=== PATIENT | male | born 1965 | race Caucasian/White ===

== ENCOUNTER 2021-04-21 09:52 | Emergency (ER) | payer BC, SELFPAY ==
--- NOTE | 2021-04-21 09:54 | ED.URI ---
HPI - URI/Sore Throat General Chief Complaint: Upper Respiratory Infection Stated Complaint: severe sinus infection Time Seen by Provider: 04/21/21 10:17 Source: patient and RN notes reviewed Mode of arrival: ambulatory Limitations: no limitations History of Present Illness HPI Narrative: 48-year-old male presents concern for 2-week history of sinus congestion, pressure, drainage. Reports painful sinuses, headache, clogged ears, general malaise. Reports taking [id number] medications with no relief. He denies cough, shortness of breath, sore throat, body aches, chills, sweats. Denies known sick contacts. MD elicited complaint: nasal congestion Related Data Allergies Allergy/AdvReac Type Severity Reaction Status Date / Time No Known Allergies Allergy Unverified 03/10/17 16:28 Review of Systems Review of Systems: CONSTITUTIONAL: Denies malaise, chills, sweats, or fever. EYES: Denies visual changes, redness, or discharge. ENT: Reports rhinorrhea, congestion, sinus pain, ear fullness. Denies otalgia and sore throat. CARDIOVASCULAR: Denies chest pain, palpitations, or edema. RESPIRATORY: Denies cough or dyspnea. GASTROINTESTINAL: Denies abdominal pain, nausea, vomiting, diarrhea SKIN: Denies rash or itching. MUSCULOSKELETAL: Denies myalgia. NEUROLOGIC: Denies headache. All systems reviewed & are unremarkable except as noted in HPI and below PMFSH Comments At time of signature, agree with nursing past medical, surgical, social and family history. There is no relevant family history pertinent to the presenting complaint Exam Narrative: GENERAL: Well-appearing, well-nourished, and in no acute distress. HEAD: Normocephalic EYES: PERRLA, conjunctivae clear ENT: Nares clear, turbinates edematous and erythematous, purulent discharge. Mucous membranes moist. TM not visible due to excess cerumen bilaterally; no tragal tenderness. Oropharynx not erythematous without lesions. Tonsils not enlarged and without exudate, no drooling, no hoarseness, no trismus, uvula midline. NECK: Supple. No lymphadenopathy CHEST: Clear to auscultation, breath sounds equal. No wheezing, rhonchi, rales, or stridor. No respiratory distress, speaks in full sentences. HEART: Regular rate and rhythm. No murmur heard. SKIN: Warm, dry, no rash. NEURO: Alert and oriented x3. PSYCH: Normal mood and affect Course Course Emergency Course: Patient is aware of diagnosis, understands and agrees to treatment plan. Anticipatory guidance given. Patient agrees to follow-up as directed and is aware of reasons to seek care at the emergency department. Portions of this record may have been created with voice recognition software Vital Signs Vital signs: Reviewed. MDM - URI/Sore Throat MDM Narrative Medical decision making narrative: Differential diagnosis considered: Baron virus, strep pharyngitis, allergic rhinitis, upper respiratory tract infection, sinusitis, rhinosinusitis, nasopharyngitis. viral pharyngitis, otitis media, otitis externa, pneumonia, bronchitis, viral cough syndrome, viral syndrome, and influenza. Exam findings show no acute concerns or changes; patient is non-toxic appearing and is in no distress. Patient is appropriate for outpatient treatment and follow-up. Critical Care Time Critical Care Time Critical Care Time: No Discharge Plan Discharge Clinical Impression: Acute bacterial sinusitis Patient Disposition: Home, Self-Care Condition: Stable Instructions: Antibiotic Form, Sinusitis (ED) Additional Instructions: Symptomatic treatment of a sinus infection aims to relieve symptoms. These treatments do not shorten the duration of illness. Nonprescription pain medications, such as acetaminophen (eg, Tylenol) or ibuprofen (eg, Motrin, Advil), are recommended for pain. Flushing the nose and sinuses with a saline solution several times per day has been proven to decrease pain associated with congestion and shorten the duration of symptoms
[2021-04-21 10:07] VITALS: BP 116/83; PULSE 68; RESP 18; TEMP 36.3; O2SAT 98
[2021-04-21 10:11] VITALS: BP 116/83; PULSE 68; RESP 18; TEMP 36.3; O2SAT 98
== END 2021-04-21 10:28 | disposition home or self-care (01) ==
PROVIDERS: Emergency Provider Nurse Practitioner
DX: J01.90 Acute sinusitis, unspecified (principal)
CPT/HCPCS: 99213; G0463

== ENCOUNTER 2022-01-04 09:18 | Emergency (ER) | payer OTHER, SELFPAY ==
[2022-01-04 09:29] VITALS: BP 127/83; PULSE 70; RESP 16; TEMP 36.3; O2SAT 98
--- NOTE | 2022-01-04 09:55 | ED.EXTPRO ---
HPI - Extremity Problem General Chief complaint: Extremity Problem,Nontraumatic Stated complaint: Numbness of finger Time Seen by Provider: 01/04/22 09:55 Source: patient Mode of arrival: ambulatory Limitations: no limitations History of Present Illness HPI Narrative: 56-year-old male presents with complaint of numbness to left ring finger that he noticed yesterday morning. Reports that left ring finger also feels cool to touch. Range of motion is normal. No weakness. Reports 15 to 20 years ago he had an injury where a rock was dropped on this finger and the bone had to be reconstructed with pins. Has had no issues with finger since. All systems reviewed and negative except as noted above. Related Data Home Medications Medication Instructions Recorded Confirmed No Home Medications 01/04/22 01/04/22 Allergies Allergy/AdvReac Type Severity Reaction Status Date / Time No Known Allergies Allergy Unverified 01/04/22 09:53 Review of Systems Review of Systems: CONSTITUTIONAL: Denies fever, chills, or sweats. EYES: Denies visual changes, redness, or discharge. ENT: Denies rhinorrhea, congestion, sore throat, or otalgia. CARDIOVASCULAR: Denies chest pain, palpitations, or edema. RESPIRATORY: Denies cough or dyspnea. GASTROINTESTINAL: Denies abdominal pain, nausea, vomiting, or diarrhea. GENITOURINARY: Denies dysuria or hematuria. SKIN: Denies rash or itching. MUSCULOSKELETAL: Denies back pain, joint pain, or myalgia. Reports numbness, cold feeling to left ring finger. NEUROLOGIC: Denies headache, numbness, or weakness. PSYCHIATRIC: Denies anxiety or depression. All other systems reviewed are negative, except as documented in HPI. PMFSH Comments At time of signature, agree with nursing past medical, surgical, social and family history. There is no relevant family history pertinent to the presenting complaint. Exam Narrative: GENERAL: This is a well-nourished, well-developed patient, in no apparent distress. HEAD: normocephalic, atraumatic. EYES: PERRL. Sclera clear/white. Vision is grossly intact. EARS: External ears normal NOSE: External nose normal NECK: Neck supple, non-tender without lymphadenopathy, masses or thyromegaly. CARDIOVASCULAR: Regular rate and rhythm without murmurs, gallops, or rubs. RESPIRATORY: Clear to auscultation. Breath sounds equal bilaterally. No wheezes, rales, or rhonchi. SKIN: warm, Dry, intact with no suspicious lesions or rash, good texture and turgor. NEURO: awake, alert, and oriented to person, place and time. There were no obvious focal neurologic abnormalities. EXTREMITIES: No tenderness to left ring finger. No swelling noted. Mildly decreased cap refill. Left ring finger does feel cooler to touch when compared to the rest of fingers on left hand. Range of motion is normal, no weakness. Course Course Level of Care: Express Care Visit Vital Signs Vital signs: Vital Signs Temperature 36.3 C L 01/04/22 09:29 Pulse Rate 70 01/04/22 09:29 Respiratory Rate 16 01/04/22 09:29 Blood Pressure 127/83 01/04/22 09:29 Pulse Oximetry 98 01/04/22 09:29 Temperature 36.3 C L 01/04/22 09:29 Pulse Rate 70 01/04/22 09:29 Respiratory Rate 16 01/04/22 09:29 Blood Pressure 127/83 01/04/22 09:29 Pulse Oximetry 98 01/04/22 09:29 Reviewed MDM - Extremity (Nontraumatic) MDM Narrative Medical decision making narrative: Was calling patient to ER for a transfer when he got up and walked out of exam room. Patient was on his phone and tearful and stated that he had a family emergency. Discharge Plan Discharge Clinical Impression: Numbness of finger Patient Disposition: Elopement After Seen by Prov Condition: Stable Prescriptions: No Action No Home Medications RF: 0 Follow-up/Referrals: PHYSICIAN,TOOL AND DIE MANAGER [Primary Care Provider] - Time of Disposition: 10:05
== END 2022-01-04 09:55 | disposition left against medical advice (07) ==
PROVIDERS: Emergency Provider Nurse Practitioner Family
DX: R20.0 Anesthesia of skin (principal)
CPT/HCPCS: 99211; G0463

== ENCOUNTER 2025-07-09 12:51 | Emergency (ER) | payer OTHER, SELFPAY ==
[2025-07-09 12:55] VITALS: BP 90/76; PULSE 72; RESP 16; TEMP 36.9; O2SAT 100
[2025-07-09 12:59] VITALS: BP 120/82
--- OUTSIDE RECORDS SUMMARY | 2025-07-09 13:53 | XMS_ITS | Encounter Summary ---
Author Organization [facility] Address [address] [place] [address] Phone Care Team Providers Care Silver Designer Name Role Phone Prachi Santos MD Primary Care Provider [phone] Kem Multani MD Unavailable [phone] Reason for Referral * Radiology Services (Routine) - Closed Specialty Diagnoses / Procedures Referred By Kelsey hernandez Referred To Contact Radiology Diagnoses Pre-op testing Procedures XR CHEST 2 VIEWS Noah Kee MD Phone: tel: fax: Referral ID Status Reason Start Date Expiration Date Visits Re quested Visits Authorized [id number] Closed 02/06/2023 1 1 * Radiology Services (Routine) - Closed Specialty Diagnoses / Procedures Referred By Kelsey hernandez Referred To Contact Radiology Diagnoses Pre-op testing Procedures EKG 12 LEAD Noah Kee MD Phone: tel: fax: Referral ID Status Reason Start Date Expiration Date Visits Re quested Visits Authorized [id number] Closed 02/06/2023 1 1 Encounter Details Date Type Department Care Team (Latest Contact Info) Description 02/06/2023 Transcribe Orders [facility] Preop/Pacu II [address] [place] [address] Noah Kee MD [address] [place] [address] Pre-op testing (Primary Dx) Social History Tobacco Use Types Packs/Day Years Used Date Smoking Tobacco: Every Day Cigarettes Smokeless Tobacco: Never Alcohol Use Standard Drinks/Week Comments Yes 0 (1 standard drink = 0.6 oz pur e alcohol) occasionally Sexually Active Control Partners Comments Not Currently Sex and Gender Information Value Date Recorded Sex Assigned at Not on file Legal Sex Male 12:14 AM CDT Gender Identity Not on file Sexual Orientation Not on file COVID-19 Exposure Response Date Recorded In the last 10 days, have yo u been in contact with someone who was confirmed or suspected to have Coronavirus/COVID-19? No / Unsure 02/07/2023 1:53 PM CDT documented as of this encounter Plan of Treatment Not on file documented as of this encounter Results * XR CHEST 2 VIEWS (02/20/2023 10:48 AM CDT) Anatomical Region Laterality Modality Chest N/A Digital Radiogra phy 02/20/2023 1:08 PM CDT Impressions 02/20/2023 1:11 PM CDT IMPRESSION: No active cardiopulmonary disease. Narrative 02/20/2023 1:11 PM CDT EXAM DESCRIPTION: XR CHEST 2 VIEWS REASON FOR STUDY: Pre operative CXR. knee surgery 03/01/23. no chest complaints TECHNIQUE: Frontal and lateral radiographic views of the chest acquired. COMPARISON: None Available. FINDINGS: LUNGS/PLEURA: No focal consolidation or pneumothorax. No pleural effusion. There are benign calcified pulmonary granulomas. Minimal atelectasis left lung base. HEART/MEDIASTINUM: Heart size is normal. Normal mediastinal and hilar contours. There are calcified hilar and mediastinal lymph nodes. HARDWARE/LINES/TUBES: None. BONES: No acute findings. OTHER: No other significant finding. THIS IS AN ELECTRONICALLY VERIFIED FINAL REPORT 02/20/2023 1:08 PM - Electronically signed by Avi Odonnell M.D. RW: DEEPALI Report ID: [id number] Reading Location: [id number] Procedure Note Avi Odonnell MD - 02/20/2023 EXAM DESCRIPTION: XR CHEST 2 VIEWS REASON FOR STUDY: Pre operative CXR. knee surgery 03/01/23. no chest complaints TECHNIQUE: Frontal and lateral radiographic views of the chest acquired. COMPARISON: None Available. FINDINGS: LUNGS/PLEURA: No focal consolidation or pneumothorax. No pleural effusion. There are benign calcified pulmonary granulomas. Minimal atelectasis left lung base. HEART/MEDIASTINUM: Heart size is normal. Normal mediastinal and hilar contours. There are calcified hilar and mediastinal lymph nodes. HARDWARE/LINES/TUBES: None. BONES: No acute findings. OTHER: No other significant finding. THIS IS AN ELECTRONICALLY VERIFIED FINAL REPORT 02/20/2023 1:08 PM - Electronically signed by Avi Odonnell M.D. RW: DEEPALI Report ID: [id number] Reading Location: [id number] IMPRESSION: No active cardiopulmonary disease. Noah Kee MD IMG DIAGNOSTIC ORDERABLES Final Result * EKG 12 LEAD (02/20/2023 10:39 AM CDT) Ventricular Rate 59 BPM EXTERNAL EKG Atrial Rate 59 BPM EXTERNAL EKG P-R Interval 174 ms EXTERNAL EKG QRS Duration 110 ms EXTERNAL EKG Q-T Duration 446 ms EXTERNAL EKG QTC CALCULATION 441 ms EXTERNAL EKG P [place] 71 degrees EXTERNAL EKG R [place] 8 degrees EXTERNAL EKG T [place] 49 degrees EXTERNAL EKG 02/20/2023 10:3 9 AM CDT Impressions EXTERNAL EKG - 02/21/2023 11:40 AM CDT Sinus bradycardia Possible Left atrial enlargement Borderline ECG No previous ECGs available Confirmed by Dante Hart ([id number]) on 02/21/2023 11:40:41 AM Narrative Procedure Note Dante Bond MD - 02/21/2023 IMPRESSION: Sinus bradycardia Possible Left atrial enlargement Borderline ECG No previous ECGs available Confirmed by Dante Hart ([id number]) on 02/21/2023 11:40:41 AM us Noah Kee MD IMG ECG ORDERABLES Final Result EXTERNAL EKG * (ABNORMAL) CMP (COMPREHENSIVE METABOLIC PANEL) (02/20/2023 10:34 AM CDT) SODIUM 138 136 - 144 mmol/L 02/20/2023 11:16 AM CDT [facility] POTASSIUM 4.1 3.5 - 5.1 mmol/L 02/20/2023 11:16 AM CDT [facility] CHLORIDE 103 100 - 110 mmol/L 02/20/2023 11:16 AM CDT [facility] CO2, VENOUS 25 22 - 32 mmol/L 02/20/2023 11:16 AM CDT [facility] ANION GAP 14.1 8.0 - 20.0 mmol/L 02/20/2023 11:16 AM CDT [facility] GLUCOSE 97 70 - 99 mg/dL 02/20/2023 11:16 AM CDT [facility] BUN 19 6 - 20 mg/dL 02/20/2023 11:16 AM CDT [facility] CREATININE, BLOOD 0.92 0.80 - 1.30 mg/dL 02/20/2023 11:16 AM T [facility] BUN/CREATININE RATIO 21(H) 12 - 20 ratio 02/20/2023 11:16 AM CDT [facility] TOTAL PROTEIN 7.3 6.0 - 8.3 g/dL 02/20/2023 11:16 AM CDT [facility] ALBUMIN 4.2 3.5 - 5.2 g/dL 02/20/2023 11:16 AM CDT [facility] Comment: The colormetric methods used for the determination of Albumin may lead to falsely elevated test results in patients suffering from renal failure or insufficiency due to interference with other proteins. A/G RATIO 1.4 1.0 - 2.0 02/20/2023 11:16 AM CDT [facility] CALCIUM 9.2 8.9 - 10.3 mg/dL 02/20/2023 11:16 AM CDT [facility] T BILI 0.4 <=1.2 mg/dL 02/20/2023 11:16 AM CDT [facility] SGOT (AST) 14 <=40 U/L 02/20/2023 11:16 AM CDT [facility] SGPT (ALT) 15 <=41 U/L 02/20/2023 11:16 AM CDT [facility] ALKALINE PHOSPHATASE 129 40 - 130 U/L 02/20/2023 11:16 AM CDT [facility] IS THE PATIENT REQUIRED TO BE FASTING? No 02/20/2023 11:16 AM CDT [facility] GFR, ESTIMATED >60 >=60 02/20/2023 11:16 AM CDT [facility] Comment: Creatinine Clearance is the preferred criteria for selecting drug dose adjustments in renally impaired patients. The GFR is provided as additional pertinent clinical information. GFR is reported in mL/min/1.73 sq m. Calculation based on the Chronic Kidney Disease Epidemiology Collaboration (CKD- EPI) equation refit without adjustment for race. GFR, EST. >60 >=60 023 11:16 AM CDT [facility] GFR, EST. NONAFRICAN >60 >=60 02/20/2023 11:16 AM CDT [facility] Blood Venipuncture / Unknown 02/20/2023 10:34 AM CDT 02/20/2023 10:51 AM CDT us Noah Kee MD CHEMISTRY ORDERABLES Final Resul t [facility] [address] [place] [address] documented in this encounter Visit Diagnoses Diagnosis Pre-op testing- Primary Preoperative examination, unspecified Pre-op testing Preoperative examination, unspecified Pre-op testing Preoperative examination, unspecified documented in this encounter Care Teams Silver Designer Relationship Specialty Start Date End Date Prachi Santos MD [address] [place] [address] PCP - General Internal Medicine 12/30/22 Kem Multani MD [address] [place] [address] Consulting Physician Gastroenterology 12/15/22 documented as of this encounter
--- OUTSIDE RECORDS SUMMARY | 2025-07-09 13:53 | XMS_ITS | Clinical Summary ---
Author Organization [facility] Address [address] [place] [address] Care Team Providers Care Splicing Supervisor Name Role Phone Prachi Santos MD Primary Care Provider [phone] Allergies No known active allergies Medications multivitamin capsuleIndicatio ns:Vitamin Deficiency Prevention Take 1 capsule by mouth every morning Active atorvastatin (LIPITOR) 10 mg tabletIndication s:hyperlipidemia Take 1 tablet (10 mg total) by mouth every morning 4 Active naproxen (ALEVE) 220 mg tabletIndication s:Pain Take 1 tablet (220 mg total) by mouth as needed for pain Active sildenafiL (VIAGRA) 100 mg tabletIndication s:Erectile Dysfunction Take 1 tablet (100 mg total) by mouth as needed for erectile dysfunction 10 tablet 11 4 Active Active Problems Problem Noted Date Diagnosed Date IPMN (intraductal papillary mucinous neoplasm) 0 01/24/2024 Health care maintenance 01/24/2024 Hydrocele 12/06/2023 Hydrocele in adult 10/26/2022 Overview (10/05/2023): 11/08/22: NC. Hydrocele. Scrotal US (10/26/22) - large right hydrocele results in anteroinferior compression of the right testis, without evidence of testicular torsion. 02/16/23: RP. S/p R hydrocelectomy w/ drain placement, orchiopexy (12/07/22). 10/05/23: RP. F/u examination. Encounters Date Type Department Care Team Description 06/26/2025 Telephone [facility] [address] [facility] [address] [place] [address] Godwin Lockwood MD from Last 3 Months Surgical History Surgery Date Site/Laterality Comments KNEE ARTHROSCOPY 08/28/1982 - 08/27/1983 Bilateral ORAL SURGERY 08/28/2018 - 08/27/2019 lower teeth removed ESOPHAGOGASTRODUODENOSCOPY 12/26/2022 - 01/25/2023 HYDROCELE EXCISION / REPAIR 11/26/2022 - 12/25/2022 Right hydrocelectomy KNEE ARTHROSCOPY W/ MENISCECTOMY 3 - 03/27/2023 Right COLONOSCOPY 08/28/2021 - 08/27/2022 Medical History Medical History Date Comments Hydrocele Tobacco use IPMN (intraductal papillary mucinous neoplasm) 0 01/24/2024 Family History Medical History Relation Name Comments Anesthesia problems Neg Hx Social History Tobacco Use Types Packs/Day Years Used Date Smoking Tobacco: Every Day Cigarettes 1 40.9 Started: 1984 Passive Smoke Exposure: Never Smokeless Tobacco: Never Tobacco Cessation:Ready to Q uit: Not Asked; Counseling Given: Not Answered Alcohol Use Standard Drinks/Week Comments Yes 0 (1 standard drink = 0.6 oz pur e alcohol) AUDIT-C Answer Date Recorded Q1: How often do you have a drink containing alc ohol? Never 01/24/2024 Average Number of Drinks Not on file 024 Frequency of Binge Drinking Not on file 12/27 Personal Safety Answer Date Recorded Have you ever been in or are you currently in a harmful physical or emotional relationship or is someone making you feel afraid or unsafe? Denies 01/04/2024 Sex and Gender Information Value Date Recorded Sex Assigned at Not on file Legal Sex Male 11:12 AM OUTBOARD MOTORBOAT RIGGER Gender Identity Not on file Sexual Orientation Not on file Last Filed Vital Signs Vital Sign Reading Time Taken Comments Blood Pressure 113/78 01/24/2024 10:19 AM CDT Pulse 66 01/24/2024 10:19 AM CDT Temperature 35.8 C (96.4 F) 01/04/2024 10:55 AM CDT Respiratory Rate 13 01/04/2024 10:55 AM CDT Oxygen Saturation 94% 01/04/2024 10:55 AM CDT Inhaled Oxygen Concentration - - Weight 103.9 kg (229 lb) 01/24/2024 10:19 AM CDT Height 193 cm (6' 4) 01/24/2024 10:19 AM CDT Body Mass Index 27.87 01/24/2024 10:19 AM CDT Plan of Treatment Health Maintenance Due Date Last Done Comments Colon Cancer Screening-Colonoscopy 1963 Depression Screening 1963 Hepatitis C Screening 1963 Prostate Cancer Screening-PSA 1963 DTaP/Tdap/Td Vaccine (1 - Tdap) 1974 Hepatitis B Screening 1981 Regular Well Visit/Exam 18-64 1981 Pneumococcal vaccine <65 (1 of 2 - PCV) 1982 Lung Cancer Screening 2013 Zoster Vaccine (1 of 2) 2013 Covid-19 Vaccine (3 - season) 2025, 03/30/2021 Influenza Vaccine (#1) 2025 Insurance [employer] Advance Directives For more information, please contact: [phone] * Full Code (Latest Code Status on File) Date Activated Date Inactivated Comments 01/05/2023 2:15 PM 01/17/2023 1:00 PM Care Teams Splicing Supervisor Relationship Specialty Start Date End Date Prachi Santos MD [address] [place] [address] PCP - General Internal Medicine 09/07/23
--- OUTSIDE RECORDS SUMMARY | 2025-07-09 13:53 | XMS_ITS | Clinical Summary ---
Author Organization [facility] Address [address] [place] [address] Care Team Providers Care Life Science Taxonomist Name Role Phone Prachi Santos MD Primary Care Provider [phone] Allergies No known active allergies Medications Multiple Vitamin (MULTI VITAMIN DAILY OR) Take 1 capsule by mouth daily. Active naproxen sodium (ANAPROX) 220 MG tablet Take 1 tablet (220 mg total) by mouth. Active sildenafil (VIAGRA) 100 MG tablet Take 1 tablet (100 mg total) by mouth. Active atorvastatin (LIPITOR) 10 MG tabletIndications:O ther hyperlipidemia Take 1 tablet (10 mg total) by mouth daily. 90 tablet 1 Active Active Problems Problem Noted Date Diagnosed Date Other hyperlipidemia 11/28/2024 Assessment & Plan (11/28/2024 5:12 PM CDT): - pt is on atorvastatin -Patient to follow Mediterranean diet and exercise Elevated BP without diagnosis of hypertension Assessment & Plan (11/28/2024 5:11 PM CDT): Without past history of hypertension -Patient to follow low-salt diet -Monitor blood pressure -Will reassess with next follow-up as well Kidney stone 11/28/2024 Overview (11/28/2024): -pt passed on his own 2023 -also seen by urologist IPMN (intraductal papillary mucinous neoplasm) 0 01/24/2024 Assessment & Plan (11/28/2024 4:55 PM CDT): -sees GI and had MRI in 04/2024 -pt has f/u with specialist Hydrocele 12/06/2023 Assessment & Plan (11/28/2024 4:54 PM CDT): -s/p sx 2023 -stable - pt was seen by urologist Tear of medial meniscus of right knee, initial e ncounter 03/01/2023 Family History Medical History Relation Comments Lung Cancer Father Relation Status Comments Father Social History Tobacco Use Types Packs/Day Years Used Date Smoking Tobacco: Every Day Cigarettes 1 40.9 Started: 1984 Smokeless Tobacco: Never Tobacco Cessation:Ready to Q uit: No; Counseling Given: Yes Alcohol Use Standard Drinks/Week Comments Yes 0 (1 standard drink = 0.6 oz pur e alcohol) rarely PHQ-2 Answer Date Recorded Patient Health Questionnaire-2 Score 0 11/28/2024 Sex and Gender Information Value Date Recorded Sex Assigned at Male 11/28/2024 4:30 PM CDT Legal Sex Male 10:51 AM CDT Gender Identity Male 11/28/2024 4:30 PM CDT Sexual Orientation Not on file Last Filed Vital Signs Vital Sign Reading Time Taken Comments Blood Pressure 138/86 11/28/2024 4:32 PM CDT Pulse 68 11/28/2024 4:19 PM CDT Temperature 36.7 C (98 F) 11/28/2024 4:19 PM CDT Respiratory Rate 18 11/28/2024 4:19 PM CDT Oxygen Saturation 98% 11/28/2024 4:19 PM CDT Inhaled Oxygen Concentration - - Weight 92.5 kg (204 lb) 11/28/2024 4:19 PM CDT Height 193 cm (6' 4) 11/28/2024 4:19 PM CDT Body Mass Index 24.83 11/28/2024 4:19 PM CDT Plan of Treatment Health Maintenance Due Date Last Done Comments Colorectal Cancer Screening Colonoscopy (10 Years) 1963 Annual Physical 1966 Hepatitis C 1981 Pneumococcal Vaccine: 50+ Years (1 of 2 - PCV) 1982 Lung Cancer Screening 2013 Zoster Vaccines (1 of 2) 2013 COVID-19 Vaccine (3 - 2024-2 6 season) 2025 04/20/2021, 03/30/2021 Influenza Adult (#1) 2025 DTaP, Tdap and Td Vaccines ( 2 - Td or Tdap) 12/15/2032 12/15/2022 RSV Immunization or 60+ Years (1 - 1-dose 75+ series) 2038 PHQ-2 (Physician [place]) Completed 11/28/2024 Hepatitis A Vaccines Aged Out No long er eligible based on patient's age to complete this topic Meningococcal B Vaccine Aged Out No l onger eligible based on patient's age to complete this topic Meningococcal Vaccine Aged Out No cris juju eligible based on patient's age to complete this topic RSV Immunizations Under 20 Months Aged Out No longer eligible b ased on patient's age to complete this topic [place] [address] [place] [address] Care Teams Life Science Taxonomist Relationship Specialty [place] [address] [facility] [address] [place] [id number] PCP - General INTERNAL MEDICINE 11/13/24
--- OUTSIDE RECORDS SUMMARY | 2025-07-09 13:53 | XMS_ITS | Clinical Summary ---
Author Organization [facility] Address [address] [place] [address] Phone Care Team Providers Care Erosion Control Coordinator Name Role Phone Prachi Santos MD Primary Care Provider [phone] Kem Multani MD Unavailable [phone] Allergies No known active allergies Medications Multiple Vitamin (MULTIVITAMIN ADULT PO) Take 1 Capsule by mouth daily. INSTRUCTED TO HOLD FOR 3 DAYS PRIOR TO SURGERY Active naproxen sodium (ANAPROX) 220 MG Tablet Take 220 mg by mouth daily. TAKES 2 AT A TIME HOLD FOR 7 DAYS PRIOR TO SURGERY Active ibuprofen (MOTRIN) 200 MG Tablet Take 200 mg by mouth every 8 hours as needed. HOLD FOR 7 DAYS PRIOR TO SURGERY Active meclizine (ANTIVERT) 25 MG Tablet Take 1 Tablet by mouth 3 times daily as needed for Dizziness. 30 Tablet 4 Active tamsulosin (FLOMAX) 0.4 MG Capsule Take 1 Capsule by mouth daily. 10 Capsule 4 Active HYDROcodone-kali taminophen (NORCO) 5-325 MG TabletIndicatio ns:Ureterolithi asis,Tear of medial meniscus of right knee, initial encounter Take 1-2 Tablets by mouth every 4 hours as needed for Moderate or more severe pain. 20 Tablet 4 Active Active Problems Problem Noted Date Diagnosed Date Tear of medial meniscus of right knee, initial e ncounter 03/01/2023 Family History Medical History Relation Name Comments Cancer Father BRAIN Renal Failure Mother Relation Name Status Comments Father Mother Alive Social History Tobacco Use Types Packs/Day Years Used Date Smoking Tobacco: Every Day Cigarettes Smokeless Tobacco: Never Tobacco Cessation:Ready to Q uit: Not Asked; Counseling Given: Not Answered Alcohol Use Standard Drinks/Week Comments Yes 0 (1 standard drink = 0.6 oz pur e alcohol) RARELY Sexually Active Control Partners Comments Not Currently Sex and Gender Information Value Date Recorded Sex Assigned at Not on file Legal Sex Male 12:14 AM CDT Gender Identity Not on file Sexual Orientation Not on file Last Filed Vital Signs Vital Sign Reading Time Taken Comments Blood Pressure 130/81 05/07/2024 2:00 AM CDT Pulse 70 05/07/2024 2:00 AM CDT Temperature 36.4 C (97.6 F) 05/06/2024 7:27 PM CDT Respiratory Rate 16 05/07/2024 2:00 AM CDT Oxygen Saturation 96% 05/07/2024 2:00 AM CDT Inhaled Oxygen Concentration - - Weight 99.8 kg (220 lb) 05/06/2024 7:27 PM CDT Height 193 cm (6' 4) 05/06/2024 7:27 PM CDT Body Mass Index 26.78 05/06/2024 7:27 PM CDT Plan of Treatment Health Maintenance Due Date Last Done Comments Hepatitis C Virus (HCV) Screening 1963 Pneumococcal Immunization (5 0+ years) (1 of 2 - PCV) 1982 Cologuard 02/29/2008 Colonoscopy 02/29/2008 Colorectal Cancer Screening 02/29/2008 Immunochemical Fecal Occult Blood 02/29/2008 Zoster Immunization (1 of 2) 2013 PSA Discussion 2018 Influenza Immunization (#1) 2025 SARS-COV-2 Immunization (3 - 2024- season) 2025 04/20/2021, 03/30/2021 Respiratory Syncytial Virus (RSV) Immunization (Adult) (1 - 1-dose 75+ series) 2038 DTaP/Tdap/Td Immunization Discontinued 12/15/2022 TdaP Immunization Completed 12/15/2022 Hepatitis B Immunization Aged Out No longer eligible based on patient's age to complete this topic Human Papillomavirus (HPV) Immunization Aged Out No longer eligible based on patient's age to complete this topic Meningococcal Immunization (ACWY) Aged Out No longer eligible based on patient's age to complete this topic Rotavirus Immunization Aged Out No lo nger eligible based on patient's age to complete this topic Insurance [facility] Member Subscriber Plan / Payer (Ef fective 2021-Present) Name:Aris Beltran Relation to Subscriber:Self Name:Aris Beltran Payer ID:PAPER Group ID:Not on file Type:Not on file Address: [place] [id number] Care Teams Erosion Control Coordinator Relationship Specialty Start Date End Date Prachi Santos MD [address] [place] [address] PCP - General Internal Medicine 12/30/22 Kem Multani MD [address] [place] [address] Consulting Physician Gastroenterology 12/15/22
--- OUTSIDE RECORDS SUMMARY | 2025-07-09 15:27 | XMS_ITS | Clinical Summary ---
Author Organization [facility] Address [address] [place] [address] Phone Care Team Providers Care Fabrication Welder Name Role Phone Prachi Santos MD Primary Care Provider [phone] Kem Multani MD Unavailable [phone] Allergies No known active allergies Medications Multiple [...] patient's age to complete this topic Insurance [facility] Member Subscriber Plan / Payer (Ef fective 2021-Present) Name:Aris Beltran Relation to Subscriber:Self Name:Aris Beltran Payer ID:PAPER Group ID:Not on file Type:Not on file Address: [place] [id number] Care Teams Fabrication Welder Relationship Specialty Start Date End Date Prachi Santos MD [address] [place] [address] PCP - General Internal Medicine 12/30/22 Kem Multani MD [address] [place] [address] Consulting Physician Gastroenterology 12/15/22
--- OUTSIDE RECORDS SUMMARY | 2025-07-09 15:27 | XMS_ITS | Clinical Summary ---
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 Office Visit [facility] Family & Internal Medicine [facility] [id number] [place] [id number] Prachi Santos [id number] [place] [address] [place] [address] Health Maintenance Due Date Last Done Comments [...] - 1-dose 75+ series) 2038 PHQ-2 (Physician [place]) Completed 11/28/2024 Hepatitis A Vaccines Aged Out [...] patient's age to complete this topic Insurance [facility] Care Teams Ed Case Manager Relationship Specialty [place] [id number] [facility] [address] [place] [address] PCP - General INTERNAL MEDICINE 11/13/24
--- OUTSIDE RECORDS SUMMARY | 2025-07-09 15:27 | XMS_ITS | Encounter Summary ---
Author Organization [facility] Address [address] [place] [phone] Phone Care Team Providers Care Hospital Ward Clerk Name Role Phone Prachi Santos MD Primary Care Provider [phone] Kem Multani MD Unavailable [phone] Reason for Referral * Radiology Services (Routine) - Closed Specialty Diagnoses / Procedures Referred By Kelsey hernandez Referred To Contact Radiology Diagnoses Pre-op testing Procedures XR CHEST 2 VIEWS Noah Kee MD Phone: tel: fax: Referral ID Status Reason Start Date Expiration Date Visits Re quested Visits Authorized [id number] Closed 02/06/2023 1 1 * Radiology Services (Routine) - Closed Specialty Diagnoses / Procedures Referred By Kelsey hernandez Referred To Contact Radiology Diagnoses Pre-op testing Procedures EKG 12 LEAD Noah Kee MD Phone: tel: fax: Referral ID Status Reason Start Date Expiration Date Visits Re quested Visits Authorized [id number] Closed 02/06/2023 1 1 Encounter Details Date Type Department Care Team (Latest Contact Info) Description 02/06/2023 Transcribe Orders [facility] Preop/Pacu II [address] [place] [address] Noah Kee MD [address] [place] [address] Pre-op testing (Primary Dx) Social History Tobacco [...] Avi Odonnell M.D. RW: DEEPALI Report ID: [id number] Reading Location: [id number] Procedure Note Avi Odonnell MD - 02/20/2023 [...] Avi Odonnell M.D. RW: DEEPALI Report ID: [id number] Reading Location: [id number] IMPRESSION: No active cardiopulmonary disease. Noah Kee MD IMG DIAGNOSTIC ORDERABLES Final Result * EKG 12 LEAD (02/20/2023 10:39 AM CDT) Ventricular Rate 59 BPM EXTERNAL EKG Atrial Rate 59 BPM EXTERNAL EKG P-R Interval 174 ms EXTERNAL EKG QRS Duration 110 ms EXTERNAL EKG Q-T Duration 446 ms EXTERNAL EKG QTC CALCULATION 441 ms EXTERNAL EKG P Roscoe 71 degrees EXTERNAL EKG R [place]coe 8 degrees EXTERNAL EKG T [place]coe 49 degrees EXTERNAL EKG 02/20/2023 10:3 9 AM CDT Impressions EXTERNAL EKG - 02/21/2023 11:40 AM CDT Sinus bradycardia Possible Left atrial enlargement Borderline ECG No previous ECGs available Confirmed by Dante Hart ([id number]) on 02/21/2023 11:40:41 AM Narrative Procedure Note Dante Bond MD - 02/21/2023 IMPRESSION: Sinus bradycardia Possible Left atrial enlargement Borderline ECG No previous ECGs available Confirmed by Dante Hart ([id number]) on 02/21/2023 11:40:41 AM us Noah Kee MD IMG ECG ORDERABLES Final Result EXTERNAL EKG * (ABNORMAL) CMP (COMPREHENSIVE METABOLIC PANEL) (02/20/2023 10:34 AM CDT) SODIUM 138 136 - 144 mmol/L 02/20/2023 11:16 AM CDT [facility] POTASSIUM 4.1 3.5 - 5.1 mmol/L 02/20/2023 11:16 AM CDT [facility] CHLORIDE 103 100 - 110 mmol/L 02/20/2023 11:16 AM CDT [facility] CO2, VENOUS 25 22 - 32 mmol/L 02/20/2023 11:16 AM CDT [facility] ANION GAP 14.1 8.0 - 20.0 mmol/L 02/20/2023 11:16 AM CDT [facility] GLUCOSE 97 70 - 99 mg/dL 02/20/2023 11:16 AM CDT [facility] BUN 19 6 - 20 mg/dL 02/20/2023 11:16 AM CDT [facility] CREATININE, BLOOD 0.92 0.80 - 1.30 mg/dL 02/20/2023 11:16 AM T [facility] BUN/CREATININE RATIO 21(H) 12 - 20 ratio 02/20/2023 11:16 AM CDT [facility] TOTAL PROTEIN 7.3 6.0 - 8.3 g/dL 02/20/2023 11:16 AM CDT [facility] ALBUMIN 4.2 3.5 - 5.2 g/dL 02/20/2023 11:16 AM CDT [facility] Comment: The colormetric methods used for the determination of Albumin may lead to falsely elevated test results in patients suffering from renal failure or insufficiency due to interference with other proteins. A/G RATIO 1.4 1.0 - 2.0 02/20/2023 11:16 AM CDT [facility] CALCIUM 9.2 8.9 - 10.3 mg/dL 02/20/2023 11:16 AM CDT [facility] T BILI 0.4 <=1.2 mg/dL 02/20/2023 11:16 AM CDT [facility] SGOT (AST) 14 <=40 U/L 02/20/2023 11:16 AM CDT [facility] SGPT (ALT) 15 <=41 U/L 02/20/2023 11:16 AM CDT [facility] ALKALINE PHOSPHATASE 129 40 - 130 U/L 02/20/2023 11:16 AM CDT [facility] IS THE PATIENT REQUIRED TO BE FASTING? No 02/20/2023 11:16 AM CDT [facility] GFR, ESTIMATED >60 >=60 02/20/2023 11:16 AM CDT [facility] Comment: Creatinine Clearance is the preferred criteria for selecting drug dose adjustments in renally impaired patients. The GFR is provided as additional pertinent clinical information. GFR is reported in mL/min/1.73 sq m. Calculation based on the Chronic Kidney Disease Epidemiology Collaboration (CKD- EPI) equation refit without adjustment for race. GFR, EST. >60 >=60 023 11:16 AM CDT [facility] GFR, EST. NONAFRICAN >60 >=60 02/20/2023 11:16 AM CDT [facility] Blood Venipuncture / Unknown 02/20/2023 10:34 AM CDT 02/20/2023 10:51 AM CDT us Naoh Kee MD CHEMISTRY ORDERABLES Final Resul t [facility] [address] [place] [address] documented in this encounter Visit Diagnoses Diagnosis Pre-op testing- Primary Preoperative examination, unspecified Pre-op testing Preoperative examination, unspecified Pre-op testing Preoperative examination, unspecified documented in this encounter Care Teams Hospital Ward Clerk Relationship Specialty Start Date End Date Prachi Santos MD [address] [place] [address] PCP - General Internal Medicine 12/30/22 Kem Multani MD [address] [place] [address] Consulting Physician Gastroenterology 12/15/22 documented as of this encounter
--- OUTSIDE RECORDS SUMMARY | 2025-07-09 15:27 | XMS_ITS | Clinical Summary ---
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
== END 2025-07-09 14:38 | disposition left against medical advice (07) ==
LOC: ANHED 14:33
DX: R42 Dizziness and giddiness (principal)
CPT/HCPCS: 99199